=== PATIENT | female | born 1960 ===

== ENCOUNTER 2024-06-26 18:36 | Emergency (ER) | payer OTHER, SELFPAY ==
[2024-06-26 18:39] VITALS: BP 138/85
--- NOTE | 2024-06-26 19:12 | ED.GENMED ---
History of Present Illness
General
Chief Complaint: Musculo-Skeletal Complaint
Source: patient
Exam Limitations: none
Time Seen by Provider: 06/26/24 19:08
History of Present Illness
History of Present Illness:
See MDM
Past History
Past History
ED Past Medical History: None
ED Past Surgical History: None
Social History
Tobacco: Non-smoker
Alcohol: None
Phy Exam
Physical Exam
Physical Exam:
See MDM
Course
Orders/Labs/Results
Orders:
Orders
06/26/24 18:38
Ankle, left 3 view CR [CR Ankle - Left Min 3 Views ] Urgent
Comment:
Reason For Exam: pain injury
Vital Signs
Initial and Last Documented VS:
Initial Vital Signs
Temp Pulse Resp BP Pulse Ox
97.6 F 74 16 138/85 97
06/26/24 18:39 06/26/24 18:39 06/26/24 18:39 06/26/24 18:39 06/26/24 18:39
Last Documented Vital Signs
Temp Pulse Resp BP Pulse Ox
97.6 F 74 16 138/85 97
06/26/24 18:39 06/26/24 18:39 06/26/24 18:39 06/26/24 18:39 06/26/24 18:39
MDM/Problems Addressed
Differential Diagnosis Includes:
HPI and MDM Narrative:
63-year-old female presenting with left ankle injury. She twisted her ankle. She denies numbness or tingling.
Physical exam
General: Well appearing and non-toxic
HEENT: protecting airway
Neck: appears supple
CV: No evidence of cyanosis
Resp: No accessory muscle use
Abd: Non-distended
Extremities: Swelling and tenderness to left lateral malleolus. Distal extremity otherwise neurovascularly intact. Joint stable
Neuro: alert
Psych: Normal affect
Skin: Intact
Problems Addressed including Acute and Chronic Conditions affecting care:
1. Left ankle sprain
Acuity: acute
Prognosis: stable
Details: X-ray negative for fracture. Will provide NSAID and Clarence wrap. Discussed follow-up with podiatry and discussed the possibility of ligamentous injury
Differential Diagnosis (but not limited to): Ankle sprain, avulsion fracture
Testing considered: Foot x-ray but no tenderness to base of fifth metatarsal
Drug therapy (if applicable): OTC meds, please see d/c instruction regarding Rx drugs
Amount and/or Complexity of Data Reviewed
Clinical info obtained from: Patient
External data reviewed: N/A
Labs I independently reviewed (but not limited to): N/A
Radiology: x-ray independently reviewed: Ankle x-ray negative for fracture
Pulse Ox: not hypoxic
EKG independently reviewed: N/A
Stenocaptioner: N/A
Critical Care: N/A
Risk of Complication:
Social Determinants of health: Good social support
Discussed with other providers: N/A
Escalation of Care includes Admit/Obs: After being observed in the Emergency Department, pt stable for discharge.
Occasional wrong word or 'sound a like' substitutions may have occurred due to the inherent limitations of voice recognition software. Read the chart carefully and recognize, using context, where substitutions have occurred.
*Critical Care Note
Total Time (30-74mins, 75-104mins- exclusive of procedures): Not Applicable
ED Attending Note
-
Portions of this chart may have been created with voice recognition software.� Occasional wrong word or��sound alike� substitutions may have occurred due to the inherent limitations of voice recognition software.
Discharge Plan
Departure
Patient Disposition: Home (Routine Discharge)
Date of Disposition: 06/26/24
Time of Disposition: 19:13
Patient with high blood pressure during this ER visit?: No
Discharge Problem:
Ankle sprain
Instructions: Ankle Sprain ED, RICE Therapy
Referrals:
Yonathan Lang DPM [Active] -
Activity Restrictions/Additional Instructions:
As we discussed, there was no obvious broken bone on the x-ray. This does not rule out a ligament injury. Continue to apply ice several times a day and continue with Motrin as needed for pain and swelling. If symptoms persist, please call the
foot doctor at the orthopedic office for further evaluation.
Interventions
Interventions:
*Risk Screen - Suicide Last Done: 06/26/24 18:41
*General Assessment Last Done: 06/26/24 18:43
*Neglect/Abuse Screening Last Done: 06/26/24 18:41
ED- Fall Risk Assessment Last Done: 06/26/24 19:18
*ED COVID-19 Vaccine History Last Done: 06/26/24 19:17
ED-Musculoskeletal Assessment Last Done: 06/26/24 19:18
Discharge Date and Time
Print Language: [id number]
[2024-06-26] MEDS: MOTRIN 600 MG PO (19:25)
== END 2024-06-26 19:28 | disposition home or self-care (01) ==
LOC: EMR 18:36
PROVIDERS: EMERGENCY PHYSICIAN Student in an Organized Health Care Education/Training Program
DX: S93.402A Sprain of unspecified ligament of left ankle, initial encounter (principal); X50.1XXA Overexertion from prolonged static or awkward postures, initial encounter
CPT/HCPCS: 99283; 73610